=== PATIENT | female | born 1990 | race Caucasian/White ===

== ENCOUNTER 2022-08-23 08:11 | Outpatient (CLI) | payer OTHER, SELFPAY | END 2022-08-23 08:12 | disposition home or self-care (01) | PROVIDERS: PCP Family Medicine; Visit Provider Family Medicine | DX: Z00.00 Encounter for general adult medical examination without abnormal findings (principal); Z13.6 Encounter for screening for cardiovascular disorders; G40.909 Epilepsy, unspecified, not intractable, without status epilepticus; E67.3 Hypervitaminosis D | CPT/HCPCS: 80053; 80061; 82306; 82607; 84425 ==

== ENCOUNTER 2022-11-22 07:17 | Outpatient (CLI) | payer OTHER, SELFPAY | END 2022-11-22 07:18 | disposition home or self-care (01) | LOC: FRMREF 07:18 | PROVIDERS: PCP Family Medicine; Visit Provider Family Medicine | DX: R53.83 Other fatigue (principal) | CPT/HCPCS: 84443 ==

== ENCOUNTER 2023-03-25 12:21 | Outpatient (CLI) | payer OTHER, SELFPAY | END 2023-03-25 12:22 | disposition home or self-care (01) | PROVIDERS: PCP Family Medicine; Visit Provider Family Medicine | DX: I95.9 Hypotension, unspecified (principal); E67.3 Hypervitaminosis D; Z79.899 Other long term (current) drug therapy | CPT/HCPCS: 80053; 82306 ==

== ENCOUNTER 2023-12-08 08:04 | Outpatient (CLI) | payer OTHER, SELFPAY | END 2023-12-08 08:05 | disposition home or self-care (01) | PROVIDERS: PCP Family Medicine; Visit Provider Family Medicine | DX: E67.3 Hypervitaminosis D (principal); D64.9 Anemia, unspecified; I95.9 Hypotension, unspecified; Z13.21 Encounter for screening for nutritional disorder | CPT/HCPCS: 80048; 82043; 82306; 82570; 82607; 82746 ==

== ENCOUNTER 2024-03-26 13:19 | Outpatient (CLI) | payer OTHER, SELFPAY | END 2024-03-26 13:20 | disposition home or self-care (01) | PROVIDERS: PCP Family Medicine; Visit Provider Family Medicine | DX: D64.9 Anemia, unspecified (principal); E67.3 Hypervitaminosis D; G40.909 Epilepsy, unspecified, not intractable, without status epilepticus; Z13.6 Encounter for screening for cardiovascular disorders; Z13.1 Encounter for screening for diabetes mellitus | CPT/HCPCS: 80053; 80061; 82043; 82306; 82570 ==